=== PATIENT | female | born 1960 | race Caucasian/White ===

== ENCOUNTER 2020-12-28 19:32 | Inpatient (IN) | payer BC, OTHER ==
[~2020-12-28] VITALS: Ht 167.6 cm; Wt 76.0 kg
[~2020-12-28 19:32] MED LIST: CITA40TA12 PO; MELO7.5T29 PO
[2020-12-28 23:00] LABS: BASO % 1 % (0-3); EOS # 0.1 x10^3/uL (0.0-0.7); EOS % 1 % (0-3); HEMATOCRIT 35.2 % (36.0-47.0); HEMOGLOBIN 12.1 g/dL (12.0-15.5); LYMPH # 1.8 x10^3/uL (1.0-4.8); LYMPH % 24 % (24-48); MEAN CORPUSCULAR HEMOGLOBIN 31 pg (25-35); MEAN CORPUSCULAR HGB CONC 34 g/dL (31-37); MEAN CORPUSCULAR VOLUME 90 fL (79-100); MONO # 1.2 x10^3/uL (0.0-1.1); MONO % 15 % (0-9); NEUT # 4.5 x10^3/uL (1.8-7.7); NEUT % 60 % (31-73); PLATELET COUNT 140 x10^3/uL (140-400); RED BLOOD COUNT 3.92 x10^6/uL (3.50-5.40); RED CELL DISTRIBUTION WIDTH 13.6 % (11.5-14.5); WHITE BLOOD COUNT 7.5 x10^3/uL (4.0-11.0)
--- NOTE | 2020-12-28 23:04 | PHYS DOC ---
Past Medical History Past Medical History: Arthritis, Hypertension, Other Additional Past Medical Histor: DDD Past Surgical History: Appendectomy, Cholecystectomy, Hysterectomy Additional Past Surgical Histo: carpal tunnel release Smoking Status: Never Smoker Alcohol Use: None Drug Use: Marijuana General Adult EDM: Chief Complaint: ABDOMINAL PAIN HPI: HPI: Patient is a 60 year old female who present to ER for evaluation of abdominal pain since Saturday. Patient says she has been constipated for about 5 days, she has been taking some laxative at home, she started having some diarrhea today. Patient denies any cough or fever. Patient says she has history of hypertension, she said whenever she comes to the doctor clinic or the hospital her blood pressure shot up. Review of Systems: Review of Systems: Constitutional: Denies fever or chills. [] Eyes: Denies change in visual acuity. [] HENT: Denies nasal congestion or sore throat. [] Respiratory: Denies cough or shortness of breath. [] Cardiovascular: Denies chest pain or edema. [] GI: Positive for abdominal pain, no nausea vomiting, : Denies dysuria. [] Musculoskeletal: Denies back pain or joint pain. [] Integument: Denies rash. [] Neurologic: Denies headache, focal weakness or sensory changes. [] Endocrine: Denies polyuria or polydipsia. [] Lymphatic: Denies swollen glands. [] Psychiatric: Denies depression or anxiety. [] Heart Score: C/O Chest Pain: N/A Risk Factors: Risk Factors: DM, Current or recent (<one month) smoker, HTN, HLP, family history of CAD, obesity. Risk Scores: Score 0 - 3: 2.5% MACE over next 6 weeks - Discharge Home Score 4 - 6: 20.3% MACE over next 6 weeks - Admit for Clinical Observation Score 7 - 10: 72.7% MACE over next 6 weeks - Early Invasive Strategies Allergies: Allergies: Allergies Coded Allergies Type Severity Reaction Last Updated Verified No Known Drug Allergies 12/28/20 No Physical Exam: PE: Constitutional: Well developed, well nourished, no acute distress, non-toxic appearance. [] HENT: Normocephalic, atraumatic, bilateral external ears normal, oropharynx moist, no oral exudates, nose normal. [] Eyes: PERRLA, EOMI, conjunctiva normal, no discharge. [] Neck: Normal range of motion, no tenderness, supple, no stridor. [] Cardiovascular:Heart rate regular rhythm, no murmur [] Lungs & Thorax: Bilateral breath sounds clear to auscultation [] Abdomen: Bowel sounds normal, soft, there is tenderness diffusely, no masses, no pulsatile masses. [] Skin: Warm, dry, no erythema, no rash. [] Back: No tenderness, no CVA tenderness. [] Extremities: No tenderness, no cyanosis, no clubbing, ROM intact, no edema. [] Neurologic: Alert and oriented X 3, normal motor function, normal sensory function, no focal deficits noted. [] Psychologic: Affect normal, judgement normal, mood normal. [] Current Patient Data: Labs: Laboratory Tests Test 12/28/20 22:55 12/28/20 23:59 White Blood Count 7.5 x10^3/uL Red Blood Count 3.92 x10^6/uL Hemoglobin 12.1 g/dL Hematocrit 35.2 % Mean Corpuscular Volume 90 fL Mean Corpuscular Hemoglobin 31 pg Mean Corpuscular Hemoglobin Concent 34 g/dL Red Cell Distribution Width 13.6 % Platelet Count 140 x10^3/uL Neutrophils (%) (Auto) 60 % Lymphocytes (%) (Auto) 24 % Monocytes (%) (Auto) 15 % Eosinophils (%) (Auto) 1 % Basophils (%) (Auto) 1 % Neutrophils # (Auto) 4.5 x10^3/uL Lymphocytes # (Auto) 1.8 x10^3/uL Monocytes # (Auto) 1.2 x10^3/uL Eosinophils # (Auto) 0.1 x10^3/uL Basophils # (Auto) 0.0 x10^3/uL Sodium Level 130 mmol/L Potassium Level 3.2 mmol/L Chloride Level 96 mmol/L Carbon Dioxide Level 26 mmol/L Anion Gap 8 Blood Urea Nitrogen 6 mg/dL Creatinine 0.9 mg/dL Estimated GFR (Cockcroft-Gault) 63.4 BUN/Creatinine Ratio 7 Glucose Level 109 mg/dL Calcium Level 8.9 mg/dL Magnesium Level 1.9 mg/dL Total Bilirubin 1.3 mg/dL Aspartate Amino Transf (AST/SGOT) 60 U/L Alanine Aminotransferase (ALT/SGPT) 64 U/L Alkaline Phosphatase 94 U/L Total Protein 7.4 g/dL Albumin 3.5 g/dL Albumin/Globulin Ratio 0.9 Lipase 124 U/L Urine Collection Type Unknown Urine Color Yellow Urine Clarity Clear Urine pH 6.5 Urine Specific [place] <=1.005 Urine Protein 30 mg/dL Urine Glucose (UA) Negative mg/dL Urine Ketones (Stick) Negative mg/dL Urine Blood Negative Urine Nitrite Negative Urine Bilirubin Negative Urine Urobilinogen Dipstick 0.2 mg/dL Urine Leukocyte Esterase Negative Urine RBC 0 /HPF Urine WBC Occ /HPF Urine Squamous Epithelial Cells Occ /LPF Urine Bacteria 0 /HPF Urine Mucus Slight /LPF Current Medications Medications (Trade) Dose Ordered Sig/Brenna Route PRN Reason Start Time Stop Time Status Last Admin Dose Admin Iohexol (Omnipaque 300 Mg/ml) 75 ml 1X ONCE IV 12/29/20 00:15 12/29/20 00:16 DC 12/29/20 00:11 Info (CONTRAST GIVEN -- Rx MONITORING) 1 each PRN DAILY PRN MC SEE COMMENTS 12/29/20 00:15 12/31/20 00:14 Morphine Sulfate (Morphine Sulfate) 4 mg 1X ONCE IVP 12/29/20 00:15 12/29/20 00:16 DC 12/29/20 01:25 Clonidine HCl (Catapres) 0.2 mg 1X ONCE PO 12/29/20 00:15 12/29/20 00:16 DC 12/29/20 01:25 Vital Signs: Vital Signs Date Time Temp Pulse Resp B/P (MAP) Pulse Ox O2 Delivery O2 Flow Rate FiO2 12/28/20 22:25 97.7 102 15 241/108 98 Room Air 97.7 EKG: EKG: [] Radiology/Procedures: Radiology/Procedures: [][facility] [address] [place] [address] IMAGING REPORT Signed PATIENT: EUNICE CORDERO ACCOUNT: [id number] : 1960 LOCATION: ER AGE: 60 SEX: F EXAM STATUS: REG ER ORD. PHYSICIAN: UJS DALY DO REASON: ABDOMINAL PAIN;OMNI 300, 75ML PROCEDURE: CT ABD PELV W/ IV CONTRST ONLY Exam: CT abdomen/pelvis with intravenous contrast Indication: Abdominal pain Comparison: None Technique: Helical CT imaging performed of the abdomen and pelvis after the intravenous administration of 75 mL Omnipaque 300 contrast. Sagittal and coronal reformats were obtained. One or more of the following individualized dose reduction techniques were utilized for this examination: 1. Automated exposure control 2. Adjustment of the mA and/or kV according to patient size 3. Use of iterative reconstruction technique. Findings: Lower chest: The heart is enlarged. There are coronary artery and mitral annulus calcifications. There are peripheral predominant reticular opacities in the lung bases, nonspecific. Mild interlobular septal thickening and airway wall thickening. No pleural effusion. Liver: The liver has mild surface nodularity and enlarged left hepatic lobe suspicious for cirrhosis. No focal liver lesion. There are small paraesophageal varices. The main portal vein is patent. Gallbladder/Biliary Tree: The gallbladder is not visualized. The common bile duct is mildly dilated measuring 8 mm. Pancreas: Normal. Spleen: Normal. Adrenal Glands: Normal. Kidneys/Ureters/Bladder: Kidneys are normal in size and enhance specially. No hydronephrosis. Ureters and bladder are unremarkable. Reproductive Organs: Uterus is surgically absent. No adnexal mass. Stomach, small bowel, and colon: Stomach is normal. No small bowel obstruction. The appendix is surgically absent. The colon is unremarkable. There is no bowel wall thickening or pneumatosis. Vasculature: Abdominal aorta is normal in caliber. There is severe calcified aortoiliac atherosclerosis with complete occlusion of the abdominal aorta at the level of the superior mesenteric artery origin over a 4.2 cm length. There is moderate narrowing of the celiac artery origin, complete occlusion of the superior mesenteric artery origin due to calcifications and severe narrowing of the renal artery origins. The abdominal branches are all opacified just distal to the stenoses or occlusions. The inferior mesenteric artery is opacified. Common iliac arteries and common femoral arteries are patent. Lymph Nodes: No lymphadenopathy. Peritoneum and retroperitoneum: Trace ascites. Bones: No acute osseous abnormality. Moderate degenerative disc disease at L5- S1. Miscellaneous: Mild body wall edema. Impression: 1. 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 There is occlusion of the superior mesenteric artery origin and severe narrowing of the renal artery origin due to calcifications but flow is seen in the vessels just beyond the occlusion/stenoses. Recommend vascular surgery or interventional radiology consultation. 2. Cirrhotic appearance of the liver with trace ascites and small paraesophageal varices. 3. Mildly dilated common bile duct. The gallbladder is not visualized. This could be related to postcholecystectomy state or stenosis/obstruction at the ampulla. 4. Cardiomegaly. Nonspecific interstitial changes in the lung bases. FOR INTERNAL CODING PURPOSES Critical result: Findings discussed with Dr. Daly at 12/29/2020 1:36 AM. RESULT CODE: (C) Course & Med Decision Making: Course & Med Decision Making Pertinent Labs and Imaging studies reviewed. (See chart for details) Patient is a 60-year-old female who present to ER due to abdominal pain. Patient was found to have hypertension. CT scan of the abdomen pelvis show chronic appearing occlusion of the abdominal aorta at the superior mesenteric and renal artery. Patient will be admitted to hospital for further evaluation and treatment. Bee Disclaimer: Bee Disclaimer: This electronic medical record was generated, in whole or in part, using a voice recognition dictation system. Departure Departure Impression: Primary Impression: Hypertensive urgency Additional Impression: Abdominal pain Disposition: ADMITTED INPATIENT Admitting Physician: THOMAS (Dr. Alvarado) Condition: STABLE Referrals: NO PCP (PCP) JUS DALY DO Dec 28, 2020 23:04
[2020-12-28 23:16] LABS: CALCIUM 8.9 mg/dL (8.5-10.1); CREATININE 0.9 mg/dL (0.6-1.0); GFR 63.4; POTASSIUM 3.2 mmol/L (3.5-5.1)
[2020-12-28 23:20] LABS: ALBUMIN 3.5 g/dL (3.4-5.0); ALBUMIN/GLOBULIN RATIO 0.9 (1.0-1.7); MAGNESIUM 1.9 mg/dL (1.8-2.4); TOTAL BILIRUBIN 1.3 mg/dL (0.2-1.0); TOTAL PROTEIN 7.4 g/dL (6.4-8.2)
[2020-12-29 00:13] LABS: BILIRUBIN,URINE NEGATIVE (NEG); CLARITY,URINE CLEAR; COLOR,URINE YELLOW; NITRITE,URINE NEGATIVE (NEG); PH,URINE 6.5 (<5.0-8.0); PROTEIN,URINE 30 mg/dL (NEG-TRACE); UROBILINOGEN,URINE 0.2 mg/dL (0.2 mg/dL)
[2020-12-29] MEDS ORDERED: cloNIDine HCL 0.1 MG TABLET PO ONE (00:15)
[2020-12-29] MEDS ORDERED: IOHEXOL 300 MG/ML 100ML VIAL. IV ONE (00:15)
[2020-12-29] MEDS ORDERED: CONTRAST GIVEN. MC PRN (00:15)
[2020-12-29] MEDS ORDERED: MORPHINE SULFATE 4 MG/ML INJ. IVP ONE (00:15)
[2020-12-29 00:42] LABS: BACTERIA,URINE 0 /HPF (0-FEW); RBC,URINE 0 /HPF (0-2); WBC,URINE OCC /HPF (0-4)
--- NOTE | 2020-12-29 01:39 | RAD ---
Exam: CT abdomen/pelvis with intravenous contrast Indication: Abdominal pain Comparison: None Technique: Helical CT imaging performed of the abdomen and pelvis after the intravenous administratio n of 75 mL Omnipaque 300 contrast. Sagittal and coronal reformats were obtained. One or more of the following individualized dose reduction techniques were utilized for this examinat ion: 1. Automated exposure control 2. Adjustment of the mA and/or kV according to patient size 3. Use of iterative reconstruction technique. Findings: Lower chest: The heart is enlarged. There are coronary artery and mitral annulus calcifications. Ther e are peripheral predominant reticular opacities in the lung bases, nonspecific. Mild interlobular se ptal thickening and airway wall thickening. No pleural effusion. Liver: The liver has mild surface nodularity and enlarged left hepatic lobe suspicious for cirrhosis. No focal liver lesion. There are small paraesophageal varices. The main portal vein is patent. Gallbladder/Biliary Tree: The gallbladder is not visualized. The common bile duct is mildly dilated m easuring 8 mm. Pancreas: Normal. Spleen: Normal. Adrenal Glands: Normal. Kidneys/Ureters/Bladder: Kidneys are normal in size and enhance specially. No hydronephrosis. Ureters and bladder are unremarkable. Reproductive Organs: Uterus is surgically absent. No adnexal mass. Stomach, small bowel, and colon: Stomach is normal. No small bowel obstruction. The appendix is surgi bran absent. The colon is unremarkable. There is no bowel wall thickening or pneumatosis. Vasculature: Abdominal aorta is normal in caliber. There is severe calcified aortoiliac atheroscleros is with complete occlusion of the abdominal aorta at the level of the superior mesenteric artery orig in over a 4.2 cm length. There is moderate narrowing of the celiac artery origin, complete occlusion of the superior mesenteric artery origin due to calcifications and severe narrowing of the renal whit ry origins. The abdominal branches are all opacified just distal to the stenoses or occlusions. The i nferior mesenteric artery is opacified. Common iliac arteries and common femoral arteries are patent. Lymph Nodes: No lymphadenopathy. Peritoneum and retroperitoneum: Trace ascites. Bones: No acute osseous abnormality. Moderate degenerative disc disease at L5-S1. Miscellaneous: Mild body wall edema. Impression: 1. 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 There is occlusion of the supe rior mesenteric artery origin and severe narrowing of the renal artery origin due to calcifications b ut flow is seen in the vessels just beyond the occlusion/stenoses. Recommend vascular surgery or inte rventional radiology consultation. 2. Cirrhotic appearance of the liver with trace ascites and small paraesophageal varices. 3. Mildly dilated common bile duct. The gallbladder is not visualized. This could be related to post cholecystectomy state or stenosis/obstruction at the ampulla. 4. Cardiomegaly. Nonspecific interstitial changes in the lung bases. FOR INTERNAL CODING PURPOSES Critical result: Findings discussed with Dr. Daly at 12/29/2020 1:36 AM. RESULT CODE: (C) Electronically signed by: Eloisa Higgins MD (12/29/2020 1:36 AM) [id number]
[2020-12-29] MEDS ORDERED: hydrALAZINE 20 MG/ML VIAL. IVP ONE (03:00)
[2020-12-29] MEDS ORDERED: MORPHINE SULFATE 4 MG/ML INJ. IVP PRN (03:15)
[2020-12-29] MEDS ORDERED: ONDANSETRON PF 4 MG/2 ML VIAL. IVP PRN (03:15)
[2020-12-29 04:10] VITALS: BP 164/73
[2020-12-29 07:00] VITALS: BP 181/87
[2020-12-29] MEDS ORDERED: HEPARIN 25,000UTS/250ML PREMIX 250 ML IV PRN (09:00)
[2020-12-29] MEDS ORDERED: IV NORMAL SALINE 1000ML BAG 1,000 ML IV ONE (09:00)
--- NOTE | 2020-12-29 09:14 | PDOC1 ---
History and Physical Date of Admission Date of Admission DATE: 12/29/20 TIME: 09:14 Identification/Chief Complaint Chief Complaint ABDOMINAL PAIN History of Present Illness History of Present Illness 60 year old female who present to ER for evaluation of abdominal pain since Saturday. Patient says she has been constipated for about 5 days, she has been taking some laxative at home, she started having some diarrhea today. Patient denies any cough or fever. Patient says she has history of hypertension, Reduced appetite over many months duration prior to this she also reports claudication symptoms in her buttock and thigh with ambulation for many months She is noted specifically in the past week significantly weaker in both of her lower extremities. pain is 7 out of 10 in severity and its intermittent in nature and crampy does not have hard signs of bowel ischemia on CT imaging and has no leukocytosis or acidosis but would recommend ADMIT/ continued serial labarotory evaluation and physical exams. 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 There is occlusion of the superior mesenteric artery origin and severe narrowing of the renal artery origin due to calcifications but flow is seen in the vessels just beyond the occlusion/stenoses. Recommend vascular surgery or interventional radiology consultation. Cirrhotic appearance of the liver with trace ascites and small paraesophageal varices. dilated common bile duct. The gallbladder is not visualized. This could be related to postcholecystectomy state or stenosis/obstruction at the ampulla. 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 Past Medical History Past Medical History Past Medical History Past Medical History: Arthritis, Hypertension, Other Additional Past Medical Histor: DDD Past Surgical History: Appendectomy, Cholecystectomy, Hysterectomy Additional Past Surgical Histo: carpal tunnel release Smoking Status: Never Smoker Alcohol Use: None Drug Use: Marijuana fhx HTN Cardiovascular: HTN Musculoskeletal: Osteoarthritis ENT: No pertinent hx Family History Family History: High Cholestrol, Hypertension Social History Smoke: Quit ALCOHOL: none Drugs: None Current Problem List Problem List Problems Medical Problems: (1) Abdominal pain Status: Acute (2) Hypertensive urgency Status: Acute Current Medications Current Medications Current Medications Iohexol (Omnipaque 300 Mg/ml) 75 ml 1X ONCE IV Last administered on 12/29/20at 00:11; Start 12/29/20 at 00:15; Stop 12/29/20 at 00:16; Status DC Info (CONTRAST GIVEN -- Rx MONITORING) 1 each PRN DAILY PRN MC SEE COMMENTS; Start 12/29/20 at 00:15; Stop 12/31/20 at 00:14 Morphine Sulfate (Morphine Sulfate) 4 mg 1X ONCE IVP Last administered on 12/29/20at 01:25; Start 12/29/20 at 00:15; Stop 12/29/20 at 00:16; Status DC Clonidine HCl (Catapres) 0.2 mg 1X ONCE PO Last administered on 12/29/20at 0 1:25; Start 12/29/20 at 00:15; Stop 12/29/20 at 00:16; Status DC Hydralazine HCl (Apresoline Inj) 20 mg 1X ONCE IVP Last administered on 12/29/20at 03:23; Start 12/29/20 at 03:00; Stop 12/29/20 at 03:04; Status DC Ondansetron HCl (Zofran) 4 mg PRN Q8HRS PRN IVP NAUSEA/VOMITING; Start 12/29/20 at 03:15; Stop 12/30/20 at 03:14 Morphine Sulfate (Morphine Sulfate) 4 mg PRN Q2HR PRN IVP PAIN; Start 12/29/20 at 03:15; Stop 12/30/20 at 03:14 Sodium Chloride 1,000 ml @ 125 mls/hr 1X ONCE IV ; Start 12/29/20 at 09:00; Stop 12/29/20 at 16:59 Heparin Sodium/ Dextrose 250 ml @ 9.12 mls/hr CONT PRN IV SEE I/O RECORD; Start 12/29/20 at 09:00 Active Scripts Active Reported Meloxicam 7.5 Mg Tablet 1 Tab PO DAILY Celexa (Citalopram Hydrobromide) 40 Mg Tablet 1 Tab PO DAILY Allergies Allergies: Coded Allergies: No Known Drug Allergies (Unverified , 12/28/20) ROS Review of System Constitutional: Denies fever or chills. [] Eyes: Denies change in visual acuity. [] HENT: Denies nasal congestion or sore throat. [] Respiratory: Denies cough or shortness of breath. [] Cardiovascular: Denies chest pain or edema. [] GI: Positive for abdominal pain, no nausea vomiting, : Denies dysuria. [] Musculoskeletal: Denies back pain or joint pain. [] Integument: Denies rash. [] Neurologic: Denies headache, focal weakness or sensory changes. [] Endocrine: Denies polyuria or polydipsia. [] Lymphatic: Denies swollen glands. [] Psychiatric: Denies depression or anxiety. [] 14 PT ROS OTHERWISE NEG General: YES: Fatigue PSYCHOLOGICAL ROS: No: Anxiety, Behavioral Disorder, Concentration difficultie, Decreased libido, Depression, Disorientation, Hallucinations, Hostility, Irritablity, Memory difficulties, Mood Swings, Obsessive thoughts, Physical a buse, Sexual abuse, Sleep disturbances, Suicidal ideation, Other HEENT: No: Heacaches, Visual Changes, Hearing change, Nasal congestion, Nasal discharge, Oral lesions, Sinus pain, Sore Throat, Epistaxis, Sneezing, Snoring, Tinnitus, Vertigo, Vocal changes, Other ALLERGY AND IMMUNOLOGY: No: Hives, Insect Bite Sensitivity, Itchy/Watery Eyes, Nasal Congestion, Post Nasal Drip, Seasonal Allergies, Other Hematological and Lymphatic: No: Bleeding Problems, Blood Clots, Blood Transfusions, Brusing, Night Sweats, Pallor, Swollen Lymph Nodes, Other Gastrointestinal: Yes Abdominal Pain Genitourinary: No Dysuria, No Frequency, No Incontinence, No Hematuria, No Retention, No Discharge, No Urgency, No Pain, No Flank Pain, No Other, No , No , No , No , No , No , No Musculoskeletal: No Gait Disturbance, No Joint Pain, No Joint Stiffness, No Joint Swelling, No Muscle Pain, No Muscular Weakness, No Pain In:, No Swelling In:, No Other Neurological: No Behavorial Changes, No Bowel/Bladder ControlChng, No Confusion, No Dizziness, No Gait Disturbance, No Headaches, No Impaired Coord/balance, No Memory Loss, No Numbness/Tingling, No Seizures, No Speech Problems, No Tremors, No Visual Changes, No Weakness, No Other Skin: Yes Dry Skin; No Eczema, No Hair Changes, No Lumps, No Mole Changes, No Mottling, No Nail Changes, No Pruritus, No Rash, No Skin Lesion Changes, No Other, No Acne Physical Exam Physical Exam Constitutional: Well developed, well nourished, no acute distress, non-toxic appearance. [] HENT: Normocephalic, atraumatic, bilateral external ears normal, oropharynx moist, no oral exudates, nose normal. [] Eyes: PERRLA, EOMI, conjunctiva normal, no discharge. [] Neck: Normal range of motion, no tenderness, supple, no stridor. [] Cardiovascular:Heart rate regular rhythm, no murmur [] Lungs & Thorax: Bilateral breath sounds clear to auscultation [] Abdomen: Bowel sounds normal, soft, there is tenderness diffusely, no masses, no pulsatile masses. [] Skin: Warm, dry, no erythema, no rash. [] Back: No tenderness, no CVA tenderness. [] Extremities: No tenderness, no cyanosis, no clubbing, ROM intact, no edema. [] Neurologic: Alert and oriented X 3, normal motor function, normal sensory function, no focal deficits noted. [] Psychologic: Affect normal, judgment normal, mood normal General: Alert, Oriented X3, Cooperative, No acute distress HEENT: EOMI, Mucous membr. moist/pink Lungs: Clear to auscultation, Normal air movement Heart: RRR, no jug vein distention Breasts: Not examined Abdomen: Soft, No hepatosplenomegaly Rectal Exam: not examined PELVIC: Examination not indicated Extremities: No clubbing, No cyanosis, No edema Neuro: Normal speech, Sensation intact, Cranial nerves 3-12 NL Psych/Mental Status: Mental status NL, Mood NL Vitals Vitals Vital Signs Date Time Temp Pulse Resp B/P (MAP) Pulse Ox O2 Delivery O2 Flow Rate FiO2 12/29/20 04:17 Room Air 12/29/20 04:10 98.3 77 20 164/73 (103) 96 98.3 Labs Labs Laboratory Tests Test 12/28/20 22:55 12/28/20 23:59 White Blood Count 7.5 x10^3/uL (4.0-11.0) Red Blood Count 3.92 x10^6/uL (3.50-5.40) Hemoglobin 12.1 g/dL (12.0-15.5) Hematocrit 35.2 % (36.0-47.0) Mean Corpuscular Volume 90 fL (79-100) Mean Corpuscular Hemoglobin 31 pg (25-35) Mean Corpuscular Hemoglobin Concent 34 g/dL (31-37) Red Cell Distribution Width 13.6 % (11.5-14.5) Platelet Count 140 x10^3/uL (140-400) Neutrophils (%) (Auto) 60 % (31-73) Lymphocytes (%) (Auto) 24 % (24-48) Monocytes (%) (Auto) 15 % (0-9) Eosinophils (%) (Auto) 1 % (0-3) Basophils (%) (Auto) 1 % (0-3) Neutrophils # (Auto) 4.5 x10^3/uL (1.8-7.7) Lymphocytes # (Auto) 1.8 x10^3/uL (1.0-4.8) Monocytes # (Auto) 1.2 x10^3/uL (0.0-1.1) Eosinophils # (Auto) 0.1 x10^3/uL (0.0-0.7) Basophils # (Auto) 0.0 x10^3/uL (0.0-0.2) Sodium Level 130 mmol/L (136-145) Potassium Level 3.2 mmol/L (3.5-5.1) Chloride Level 96 mmol/L (98-107) Carbon Dioxide Level 26 mmol/L (21-32) Anion Gap 8 (6-14) Blood Urea Nitrogen 6 mg/dL (7-20) Creatinine 0.9 mg/dL (0.6-1.0) Estimated GFR (Cockcroft-Gault) 63.4 BUN/Creatinine Ratio 7 (6-20) Glucose Level 109 mg/dL (70-99) Calcium Level 8.9 mg/dL (8.5-10.1) Magnesium Level 1.9 mg/dL (1.8-2.4) Total Bilirubin 1.3 mg/dL (0.2-1.0) Aspartate Amino Transf (AST/SGOT) 60 U/L (15-37) Alanine Aminotransferase (ALT/SGPT) 64 U/L (14-59) Alkaline Phosphatase 94 U/L (46-116) Total Protein 7.4 g/dL (6.4-8.2) Albumin 3.5 g/dL (3.4-5.0) Albumin/Globulin Ratio 0.9 (1.0-1.7) Lipase 124 U/L (73-393) Urine Collection Type Unknown Urine Color Yellow Urine Clarity Clear Urine pH 6.5 (<5.0-8.0) Urine Specific [place] <=1.005 (1.000-1.030) Urine Protein 30 mg/dL (NEG-TRACE) Urine Glucose (UA) Negative mg/dL (NEG) Urine Ketones (Stick) Negative mg/dL (NEG) Urine Blood Negative (NEG) Urine Nitrite Negative (NEG) Urine Bilirubin Negative (NEG) Urine Urobilinogen Dipstick 0.2 mg/dL (0.2 mg/dL) Urine Leukocyte Esterase Negative (NEG) Urine RBC 0 /HPF (0-2) Urine WBC Occ /HPF (0-4) Urine Squamous Epithelial Cells Occ /LPF Urine Bacteria 0 /HPF (0-FEW) Urine Mucus Slight /LPF Laboratory Tests Test 12/28/20 22:55 12/28/20 23:59 White Blood Count 7.5 x10^3/uL (4.0-11.0) Red Blood Count 3.92 x10^6/uL (3.50-5.40) Hemoglobin 12.1 g/dL (12.0-15.5) Hematocrit 35.2 % (36.0-47.0) Mean Corpuscular Volume 90 fL (79-100) Mean Corpuscular Hemoglobin 31 pg (25-35) Mean Corpuscular Hemoglobin Concent 34 g/dL (31-37) Red Cell Distribution Width 13.6 % (11.5-14.5) Platelet Count 140 x10^3/uL (140-400) Neutrophils (%) (Auto) 60 % (31-73) Lymphocytes (%) (Auto) 24 % (24-48) Monocytes (%) (Auto) 15 % (0-9) Eosinophils (%) (Auto) 1 % (0-3) Basophils (%) (Auto) 1 % (0-3) Neutrophils # (Auto) 4.5 x10^3/uL (1.8-7.7) Lymphocytes # (Auto) 1.8 x10^3/uL (1.0-4.8) Monocytes # (Auto) 1.2 x10^3/uL (0.0-1.1) Eosinophils # (Auto) 0.1 x10^3/uL (0.0-0.7) Basophils # (Auto) 0.0 x10^3/uL (0.0-0.2) Sodium Level 130 mmol/L (136-145) Potassium Level 3.2 mmol/L (3.5-5.1) Chloride Level 96 mmol/L (98-107) Carbon Dioxide Level 26 mmol/L (21-32) Anion Gap 8 (6-14) Blood Urea Nitrogen 6 mg/dL (7-20) Creatinine 0.9 mg/dL (0.6-1.0) Estimated GFR (Cockcroft-Gault) 63.4 BUN/Creatinine Ratio 7 (6-20) Glucose Level 109 mg/dL (70-99) Calcium Level 8.9 mg/dL (8.5-10.1) Magnesium Level 1.9 mg/dL (1.8-2.4) Total Bilirubin 1.3 mg/dL (0.2-1.0) Aspartate Amino Transf (AST/SGOT) 60 U/L (15-37) Alanine Aminotransferase (ALT/SGPT) 64 U/L (14-59) Alkaline Phosphatase 94 U/L (46-116) Total Protein 7.4 g/dL (6.4-8.2) Albumin 3.5 g/dL (3.4-5.0) Albumin/Globulin Ratio 0.9 (1.0-1.7) Lipase 124 U/L (73-393) Urine Collection Type Unknown Urine Color Yellow Urine Clarity Clear Urine pH 6.5 (<5.0-8.0) Urine Specific [place] <=1.005 (1.000-1.030) Urine Protein 30 mg/dL (NEG-TRACE) Urine Glucose (UA) Negative mg/dL (NEG) Urine Ketones (Stick) Negative mg/dL (NEG) Urine Blood Negative (NEG) Urine Nitrite Negative (NEG) Urine Bilirubin Negative (NEG) Urine Urobilinogen Dipstick 0.2 mg/dL (0.2 mg/dL) Urine Leukocyte Esterase Negative (NEG) Urine RBC 0 /HPF (0-2) Urine WBC Occ /HPF (0-4) Urine Squamous Epithelial Cells Occ /LPF Urine Bacteria 0 /HPF (0-FEW) Urine Mucus Slight /LPF Images Images PATIENT: EUNICE CORDERO ACCOUNT: [id number] : 1960 LOCATION: ER AGE: 60 SEX: F EXAM STATUS: REG ER ORD. PHYSICIAN: JUS EDSAI DO REASON: ABDOMINAL PAIN;OMNI 300, 75ML PROCEDURE: CT ABD PELV W/ IV CONTRST ONLY Exam: CT abdomen/pelvis with intravenous contrast Indication: Abdominal pain Comparison: None Technique: Helical CT imaging performed of the abdomen and pelvis after the intravenous administration of 75 mL Omnipaque 300 contrast. Sagittal and coronal reformats were obtained. One or more of the following individualized dose reduction techniques were utilized for this examination: 1. Automated exposure control 2. Adjustment of the mA and/or kV according to patient size 3. Use of iterative reconstruction technique. Findings: Lower chest: The heart is enlarged. There are coronary artery and mitral annulus calcifications. There are peripheral predominant reticular opacities in the lung bases, nonspecific. Mild interlobular septal thickening and airway wall thickening. No pleural effusion. Liver: The liver has mild surface nodularity and enlarged left hepatic lobe suspicious for cirrhosis. No focal liver lesion. There are small paraesophageal varices. The main portal vein is patent. Gallbladder/Biliary Tree: The gallbladder is not visualized. The common bile du ct is mildly dilated measuring 8 mm. Pancreas: Normal. Spleen: Normal. Adrenal Glands: Normal. Kidneys/Ureters/Bladder: Kidneys are normal in size and enhance specially. No hydronephrosis. Ureters and bladder are unremarkable. Reproductive Organs: Uterus is surgically absent. No adnexal mass. Stomach, small bowel, and colon: Stomach is normal. No small bowel obstruction. The appendix is surgically absent. The colon is unremarkable. There is no bowel wall thickening or pneumatosis. Vasculature: Abdominal aorta is normal in caliber. There is severe calcified aortoiliac atherosclerosis with complete occlusion of the abdominal aorta at the level of the superior mesenteric artery origin over a 4.2 cm length. There is moderate narrowing of the celiac artery origin, complete occlusion of the superior mesenteric artery origin due to calcifications and severe narrowing of the renal artery origins. The abdominal branches are all opacified just distal to the stenoses or occlusions. The inferior mesenteric artery is opacified. Common iliac arteries and common femoral arteries are patent. Lymph Nodes: No lymphadenopathy. Peritoneum and retroperitoneum: Trace ascites. Bones: No acute osseous abnormality. Moderate degenerative disc disease at L5- S1. Miscellaneous: Mild body wall edema. Impression: 1. 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 There is occlusion of the superior mesenteric artery origin and severe narrowing of the renal artery origin due to calcifications but flow is seen in the vessels just beyond the occlusion/stenoses. Recommend vascular surgery or interventional radiology consultation. 2. Cirrhotic appearance of the liver with trace ascites and small paraesophageal varices. 3. Mildly dilated common bile duct. The gallbladder is not visualized. This could be related to postcholecystectomy state or stenosis/obstruction at the ampulla. 4. Cardiomegaly. Nonspecific interstitial changes in the lung bases. FOR INTERNAL CODING PURPOSES Critical result: Findings discussed with Dr. Desai at 12/29/2020 1:36 AM. 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 / occlusion of the superior mesenteric artery origin and severe narrowing of the renal artery origin due to calcifications but flow is seen in the vessels just beyond the occlusion/stenoses. Recommend vascular surgery or interventional radiology consultation. Cirrhotic appearance of the liver with trace ascites and small paraesophageal varices. dilated common bile duct. The gallbladder is not visualized. This could be related to postcholecystectomy state or stenosis/obstruction at the ampulla. 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 Hypertensive urgency with pulse discrepancy /pseudocoarctation from the perivisceral plaque and possibly related to activation of the RAAS pathway related to hypoperfusion to the renals Edema bilateral lower extremities tobacco abuse PLAN ADMIT CONSULT VASCULAR SURGERY, REC TRANSFER [facility] CT angiogram of the chest abdomen pelvis following transfer to tertiary care center . 40 MIN CC TIME Justifications for Admission Other Justification JOSE LEIGH MD Dec 29, 2020 09:14
--- NOTE | 2020-12-29 09:59 | NUR ---
SS following for discharge planning. SS reviewed pt chart and discussed with pt RN. Pt is from home and is currently on room air. SS notified that pt needing transferred to for complex surgery. Pt has aortic occlusions. SS contacted transfer team, ; fax [phone], and made request for transfer. SS spoke with Tali in the transfer team. SS faxed records as requested. Images clouded to . requesting note from Vascular. Physician notified. Packet, transfer form, and ambulance form on the chart. COVID19 test ordered for transfer. SS will continue to follow for discharge planning. Addendum: 12/29/20 at 1419 by PERLA MARTIN [facility] denied transfer. Pt stating that they have no CTS oversight at this time. They reported that CTS is at capacity in the OR right now. Addendum: 12/29/20 at 1437 by PERLA MARTIN notified that pt does have insurance. Demographic sheet phoned and faxed to . received phone contact from Tali in the transfer team, . Pt now accepted. Accepting physician, Dr. Guo. Currently awaiting bed assignment and COVID19 result. Addendum: 12/29/20 at 1626 by PERLA CABALLERO contacted with bed#[id number]. Report# [phone]. Pt's RN notified. Packet, ambulance form, and transfer form on the chart. [facility] to transport pt to at 1700.
--- NOTE | 2020-12-29 10:02 | PDOC2 ---
CONSULT Date of Service Date of Service DATE: 12/29/20 TIME: 09:46 Reason for Consult Reason for Consult: Coral reef plaque perivisceral aorta with abdominal pain Referring Physician Referring Physician: Joselito Valladares Identification/Chief Complaint Chief Complaint Abdominal pain Source Source: Patient History of Present Illness Reason for Visit: This is a 60-year-old female presents the emergency room with abdominal pain since last Saturday. This progressively worsened specifically over the past 24 hours which led to her presentation. She reports associated nausea and has been uninterested in food for the past 4 to 5 days. She denies any weight loss. She does report reduced appetite over many months duration prior to this she also reports claudication symptoms in her buttock and thigh with ambulation for many months prior as well. She is noted specifically in the past week significantly weaker in both of her lower extremities. Report the pain is 7 out of 10 in severity and its intermittent in nature and crampy in quality. The pain is mostly in the bilateral upper quadrants when present. She has no prior history of coronary dimension or heart attack. She denies any history of angina. She does report chronic dyspnea on exertion and known history of COPD but does not use inhalers. She does continue to smoke cigarettes. She has no history of peripheral vascular invention. She denies any hematochezia or hematemesis. She does report having looser stools for the past few months. She denies any acute gastrointestinal illness or diarrhea. She has had reduced fluid intake for the past several days. On presentation she was noted to have a upper extremity blood pressure in the 200s now in the 160s systolic. Past Medical History Cardiovascular: HTN Pulmonary: COPD GI: No pertinent hx, Other Heme/Onc: No pertinent hx Hepatobiliary: No pertinent hx Psych: Anxiety Past Surgical History Past Surgical History: Appendectomy, Cholecystectomy (Open cholecystectomy via Dioni incision), Hysterectomy (Pfannenstiel incision) Family History Family History: Other (No history of anesthesia complications or bleeding diathesis/hypercoagulable) Social History 1 pack per day ALCOHOL: none Current Problem List Problem List Problems Medical Problems: (1) Abdominal pain Status: Acute (2) Hypertensive urgency Status: Acute Current Medications Current Medications Current Medications Iohexol (Omnipaque 300 Mg/ml) 75 ml 1X ONCE IV Last administered on 12/29/20at 00:11; Start 12/29/20 at 00:15; Stop 12/29/20 at 00:16; Status DC Info (CONTRAST GIVEN -- Rx MONITORING) 1 each PRN DAILY PRN MC SEE COMMENTS; Start 12/29/20 at 00:15; Stop 12/31/20 at 00:14 Morphine Sulfate (Morphine Sulfate) 4 mg 1X ONCE IVP Last administered on 12/29/20at 01:25; Start 12/29/20 at 00:15; Stop 12/29/20 at 00:16; Status DC Clonidine HCl (Catapres) 0.2 mg 1X ONCE PO Last administered on 12/29/20at 01:25; Start 12/29/20 at 00:15; Stop 12/29/20 at 00:16; Status DC Hydralazine HCl (Apresoline Inj) 20 mg 1X ONCE IVP Last administered on at 03:23; Start 12/29/20 at 03:00; Stop 12/29/20 at 03:04; Status DC Ondansetron HCl (Zofran) 4 mg PRN Q8HRS PRN IVP NAUSEA/VOMITING; Start 12/29/20 at 03:15; Stop 12/30/20 at 03:14 Morphine Sulfate (Morphine Sulfate) 4 mg PRN Q2HR PRN IVP PAIN; Start 12/29/20 at 03:15; Stop 12/30/20 at 03:14 Sodium Chloride 1,000 ml @ 125 mls/hr 1X ONCE IV ; Start 12/29/20 at 09:00; Stop 12/29/20 at 16:59 Heparin Sodium/ Dextrose 250 ml @ 9.12 mls/hr CONT PRN IV SEE I/O RECORD; Start 12/29/20 at 09:00 Active Scripts Active Reported Meloxicam 7.5 Mg Tablet 1 Tab PO DAILY Celexa (Citalopram Hydrobromide) 40 Mg Tablet 1 Tab PO DAILY Allergies Allergies: Coded Allergies: No Known Drug Allergies (Unverified , 12/28/20) ROS General: No: Appetite PSYCHOLOGICAL ROS: No: Anxiety, Behavioral Disorder, Concentration difficultie, Decreased libido, Depression, Disorientation, Hallucinations, Hostility, Irri tablity, Memory difficulties, Mood Swings, Obsessive thoughts, Physical abuse, Sexual abuse, Sleep disturbances, Suicidal ideation, Other Eyes: No Blurry vision, No Decreased vision, No Double vision, No Dry eyes, No Excessive tearing, No Eye Pain, No Itchy Eyes, No Loss of vision, No Photophobia, No Scotomata, No Uses contacts, No Uses glasses, No Other HEENT: YES: Heacaches ALLERGY AND IMMUNOLOGY: No: Hives, Insect Bite Sensitivity, Itchy/Watery Eyes, Nasal Congestion, Post Nasal Drip, Seasonal Allergies, Other Hematological and Lymphatic: No: Bleeding Problems, Blood Clots, Blood Transfusions, Brusing, Night Sweats, Pallor, Swollen Lymph Nodes, Other ENDOCRINE: No: Breast Changes, Galactorrhea, Hair Pattern Changes, Hot Flashes, Malaise/lethargy, Mood Swings, Palpitations, Polydipsia/polyuria, Skin Changes, Temperature Intolerance, Unexpected Weight Changes, Other Respiratory: YES: SOB with excertion Cardiovascular: yes Edema Gastrointestinal: Yes Nausea, Yes Vomiting, Yes Abdominal Pain Genitourinary: No Dysuria, No Frequency, No Incontinence, No Hematuria, No Retention, No Discharge, No Urgency, No Pain, No Flank Pain, No Other, No , No , No , No , No , No , No Musculoskeletal: Yes Muscle Pain Neurological: No Behavorial Changes, No Bowel/Bladder ControlChng, No Confusion, No Dizziness, No Gait Disturbance, No Headaches, No Impaired Coord/balance, No Memory Loss, No Numbness/Tingling, No Seizures, No Speech Problems, No Tremors, No Visual Changes, No Weakness, No Other Skin: No Dry Skin, No Eczema, No Hair Changes, No Lumps, No Mole Changes, No Mottling, No Nail Changes, No Pruritus, No Rash, No Skin Lesion Changes, No Other, No Acne Physical Exam General: Alert, moderate distress HEENT: Atraumatic, EOMI Lungs: Normal air movement, Other (Symmetric expansion) Heart: Regular rate, Other (You rhythm) Abdomen: Soft, No masses, Other (No peritoneal signs or rebound or guarding. Well-healed right upper quadrant incision and Pfannenstiel incision. Nontender with light palpation.) Extremities: Other (Bilateral lower extremity edema from the calf to the ankles. Nonpalpable lower extremity pulses bilaterally in the femorals, popliteal and pedal's. Strong 2+ radial pulses brachial pulses bilaterally) Skin: No rashes, No breakdown Neuro: Strength at 5/5 X4 ext Psych/Mental Status: Mental status NL MUSCULOSKELETAL: No joint tenderness, No deformity Vitals VITALS Vital Signs Date Time Temp Pulse Resp B/P (MAP) Pulse Ox O2 Delivery O2 Flow Rate FiO2 12/29/20 07:00 98.2 94 18 181/87 (118) 97 Room Air 98.2 Labs Labs Laboratory Tests Test 12/28/20 22:55 12/28/20 23:59 White Blood Count 7.5 x10^3/uL (4.0-11.0) Red Blood Count 3.92 x10^6/uL (3.50-5.40) Hemoglobin 12.1 g/dL (12.0-15.5) Hematocrit 35.2 % (36.0-47.0) Mean Corpuscular Volume 90 fL (79-100) Mean Corpuscular Hemoglobin 31 pg (25-35) Mean Corpuscular Hemoglobin Concent 34 g/dL (31-37) Red Cell Distribution Width 13.6 % (11.5-14.5) Platelet Count 140 x10^3/uL (140-400) Neutrophils (%) (Auto) 60 % (31-73) Lymphocytes (%) (Auto) 24 % (24-48) Monocytes (%) (Auto) 15 % (0-9) Eosinophils (%) (Auto) 1 % (0-3) Basophils (%) (Auto) 1 % (0-3) Neutrophils # (Auto) 4.5 x10^3/uL (1.8-7.7) Lymphocytes # (Auto) 1.8 x10^3/uL (1.0-4.8) Monocytes # (Auto) 1.2 x10^3/uL (0.0-1.1) Eosinophils # (Auto) 0.1 x10^3/uL (0.0-0.7) Basophils # (Auto) 0.0 x10^3/uL (0.0-0.2) Sodium Level 130 mmol/L (136-145) Potassium Level 3.2 mmol/L (3.5-5.1) Chloride Level 96 mmol/L (98-107) Carbon Dioxide Level 26 mmol/L (21-32) Anion Gap 8 (6-14) Blood Urea Nitrogen 6 mg/dL (7-20) Creatinine 0.9 mg/dL (0.6-1.0) Estimated GFR (Cockcroft-Gault) 63.4 BUN/Creatinine Ratio 7 (6-20) Glucose Level 109 mg/dL (70-99) Calcium Level 8.9 mg/dL (8.5-10.1) Magnesium Level 1.9 mg/dL (1.8-2.4) Total Bilirubin 1.3 mg/dL (0.2-1.0) Aspartate Amino Transf (AST/SGOT) 60 U/L (15-37) Alanine Aminotransferase (ALT/SGPT) 64 U/L (14-59) Alkaline Phosphatase 94 U/L (46-116) Total Protein 7.4 g/dL (6.4-8.2) Albumin 3.5 g/dL (3.4-5.0) Albumin/Globulin Ratio 0.9 (1.0-1.7) Lipase 124 U/L (73-393) Urine Collection Type Unknown Urine Color Yellow Urine Clarity Clear Urine pH 6.5 (<5.0-8.0) Urine Specific [place] <=1.005 (1.000-1.030) Urine Protein 30 mg/dL (NEG-TRACE) Urine Glucose (UA) Negative mg/dL (NEG) Urine Ketones (Stick) Negative mg/dL (NEG) Urine Blood Negative (NEG) Urine Nitrite Negative (NEG) Urine Bilirubin Negative (NEG) Urine Urobilinogen Dipstick 0.2 mg/dL (0.2 mg/dL) Urine Leukocyte Esterase Negative (NEG) Urine RBC 0 /HPF (0-2) Urine WBC Occ /HPF (0-4) Urine Squamous Epithelial Cells Occ /LPF Urine Bacteria 0 /HPF (0-FEW) Urine Mucus Slight /LPF Laboratory Tests Test 12/28/20 22:55 12/28/20 23:59 White Blood Count 7.5 x10^3/uL (4.0-11.0) Red Blood Count 3.92 x10^6/uL (3.50-5.40) Hemoglobin 12.1 g/dL (12.0-15.5) Hematocrit 35.2 % (36.0-47.0) Mean Corpuscular Volume 90 fL (79-100) Mean Corpuscular Hemoglobin 31 pg (25-35) Mean Corpuscular Hemoglobin Concent 34 g/dL (31-37) Red Cell Distribution Width 13.6 % (11.5-14.5) Platelet Count 140 x10^3/uL (140-400) Neutrophils (%) (Auto) 60 % (31-73) Lymphocytes (%) (Auto) 24 % (24-48) Monocytes (%) (Auto) 15 % (0-9) Eosinophils (%) (Auto) 1 % (0-3) Basophils (%) (Auto) 1 % (0-3) Neutrophils # (Auto) 4.5 x10^3/uL (1.8-7.7) Lymphocytes # (Auto) 1.8 x10^3/uL (1.0-4.8) Monocytes # (Auto) 1.2 x10^3/uL (0.0-1.1) Eosinophils # (Auto) 0.1 x10^3/uL (0.0-0.7) Basophils # (Auto) 0.0 x10^3/uL (0.0-0.2) Sodium Level 130 mmol/L (136-145) Potassium Level 3.2 mmol/L (3.5-5.1) Chloride Level 96 mmol/L (98-107) Carbon Dioxide Level 26 mmol/L (21-32) Anion Gap 8 (6-14) Blood Urea Nitrogen 6 mg/dL (7-20) Creatinine 0.9 mg/dL (0.6-1.0) Estimated GFR (Cockcroft-Gault) 63.4 BUN/Creatinine Ratio 7 (6-20) Glucose Level 109 mg/dL (70-99) Calcium Level 8.9 mg/dL (8.5-10.1) Magnesium Level 1.9 mg/dL (1.8-2.4) Total Bilirubin 1.3 mg/dL (0.2-1.0) Aspartate Amino Transf (AST/SGOT) 60 U/L (15-37) Alanine Aminotransferase (ALT/SGPT) 64 U/L (14-59) Alkaline Phosphatase 94 U/L (46-116) Total Protein 7.4 g/dL (6.4-8.2) Albumin 3.5 g/dL (3.4-5.0) Albumin/Globulin Ratio 0.9 (1.0-1.7) Lipase 124 U/L (73-393) Urine Collection Type Unknown Urine Color Yellow Urine Clarity Clear Urine pH 6.5 (<5.0-8.0) Urine Specific [place] <=1.005 (1.000-1.030) Urine Protein 30 mg/dL (NEG-TRACE) Urine Glucose (UA) Negative mg/dL (NEG) Urine Ketones (Stick) Negative mg/dL (NEG) Urine Blood Negative (NEG) Urine Nitrite Negative (NEG) Urine Bilirubin Negative (NEG) Urine Urobilinogen Dipstick 0.2 mg/dL (0.2 mg/dL) Urine Leukocyte Esterase Negative (NEG) Urine RBC 0 /HPF (0-2) Urine WBC Occ /HPF (0-4) Urine Squamous Epithelial Cells Occ /LPF Urine Bacteria 0 /HPF (0-FEW) Urine Mucus Slight /LPF Images Images I reviewed the CT venous phase of the abdomen and pelvis which demonstrates a atherosclerotic coronary plaque in the perivisceral aorta extending from the just above the celiac origin to the renal arteries. There is no cyst evidence of thrombosis of the celiac or SMA and there is evidence of distal flow into the celiac and SMA. There is no hard signs of bowel ischemia on evaluation of the intestines. In the renal arteries there is calcification extends to the ostium of both renal arteries causing mild to moderate stenosis. The core reef plaque in the aorta does cause severe stenosis of the aorta at this level. Assessment/Plan Assessment/Plan 1. 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 2. Hypertensive urgency with pulse discrepancy again secondary to pseudocoarctation from the perivisceral plaque and possibly related to activation of the RAAS pathway related to hypoperfusion to the renals 3. Edema bilateral lower extremities 4. tobacco abuse Recommend administration of IV fluids to augment bowel perfusion. Recommend initiation of heparin infusion. Recommend transfer to tertiary care center as surgery would require retroperitoneal incision and a high level of intensive care in order to perform a trapdoor perivisceral endarterectomy versus bypass replacement portion of the aorta. This requires high level intensive care and availability of multidisciplinary specialty care. Hopefully her symptoms improve with hydration and anticoagulation to allow for cardiac evaluation prior to proceeding with the operation. There is no evidence of distal embolization and no evidence of thrombosis of the mesenteric vessels. The reason for her acute presentation is likely a relative state of hypovolemia contributing to her symptoms currently. I would not recommend interventions targeted lower her systemic blood pressure as this is necessary to perfuse her mesenteric vessels unless she has symptoms such as headache that necessitate treatment. She does not have hard signs of bowel ischemia on CT imaging and has no leukocytosis or acidosis but would recommend continued serial labarotory evaluation and physical exams. Hopefully her symptoms will improve with ongoing medical management. If not she would require emergent surgical intervention with a high risk procedure. Given her lower extremity edema I am concerned about the possibly of some degree of diastolic heart failure related to chronic increased peripheral vascular resistance. This was discussed with the hospitalist, Joselito Alvarado. I also discussed her findings with several of my partners. Ideally we would obtain a CT angiogram of the chest abdomen pelvis for planning purposes following transfer to tertiary care center as her CT venogram is a less than ideal study. CORWIN RODRIGUEZ MD Dec 29, 2020 10:02
[2020-12-29 11:00] VITALS: BP 183/86
[2020-12-29] MEDS ORDERED: POTASSIUM CHLORIDE 20MEQ 100 ML IV SCH (14:00)
[2020-12-29] MEDS ORDERED: hydrALAZINE 20 MG/ML VIAL. IVP PRN (14:00)
[2020-12-29] MEDS: POTASSIUM CHLORIDE 10MEQ 100 ML IV SCH ×3 (14:22→16:13)
[2020-12-29 15:00] VITALS: BP 155/67
[2020-12-29 16:25] LABS: CALCIUM 8.2 mg/dL (8.5-10.1); CREATININE 0.9 mg/dL (0.6-1.0); GFR 63.4; POTASSIUM 3.9 mmol/L (3.5-5.1)
--- NOTE | 2020-12-29 17:05 | NUR ---
Discharge Note: EUNICE CORDERO CLYO Discharge instructions and discharge home medications reviewed with Other facility and a copy given. All questions have been answered and understanding verbalized. The following instructions and handouts were given: copy of chart and imaging studies. Discontinued lines and drains: Peripheral IV not discontinued. Patient discharged to [facility] with Ambulance Personnel via [facility]
== END 2020-12-29 17:08 | disposition short-term general hospital (02) | DRG 395 ==
LOC: ER 19:32 → 5 NORTH 12-29 03:10
PROVIDERS: ADMIT Internal Medicine; ATTEND Internal Medicine
DX: K55.059 Acute (reversible) ischemia of intestine, part and extent unspecified (principal); K55.1 Chronic vascular disorders of intestine; I16.0 Hypertensive urgency; E86.1 Hypovolemia; F17.210 Nicotine dependence, cigarettes, uncomplicated; I11.9 Hypertensive heart disease without heart failure; I73.9 Peripheral vascular disease, unspecified; J44.9 Chronic obstructive pulmonary disease, unspecified; K59.00 Constipation, unspecified; K83.8 Other specified diseases of biliary tract; Z82.49 Family history of ischemic heart disease and other diseases of the circulatory system; Z90.49 Acquired absence of other specified parts of digestive tract; Z90.710 Acquired absence of both cervix and uterus; F41.9 Anxiety disorder, unspecified; M19.90 Unspecified osteoarthritis, unspecified site; Z20.822 Contact with and (suspected) exposure to COVID-19; I70.0 Atherosclerosis of aorta
CPT/HCPCS: 36415; 74177; 80048; 80053; 81001; 83690; 83735; 85025; 85520; 87426; 96374; 96375; J0360; J1644; J2270; J3480; J7030; Q9967; 99285-25; G0378